=== PATIENT | male | born 1965 | race African-American/Black ===

== ENCOUNTER 2016-05-15 14:44 | Emergency (ER) | payer SELFPAY ==
[2016-05-15] MEDS ORDERED: DIPH/PERTUSS(ACELL)/TETANUS VAC/PF 0.5 ML SYR (>=10YO) IM ONE (15:28)
--- NOTE | 2016-05-15 15:28 | ER Document Report ---
ED Medical Screen (RME) - General Stated Complaint: LEG INJURY Notes: 51 yo male c/o laceration to left lower leg. tree branch fell. unsure of tetnus status. 3 cm laceration, no active bleeding. TRAVEL OUTSIDE OF THE [place] IN LAST 30 DAYS: No - Related Data Allergies/Adverse Reactions: No Known Allergies Allergy (Verified 05/15/16 15:24)
[2016-05-15] MEDS ORDERED: LIDOCAINE 1%/EPINEPHRINE INJ 20 ML VIAL INJ ONE (19:01)
--- NOTE | 2016-05-15 19:28 | ER Document Report ---
ED General - General Chief Complaint: Laceration Stated Complaint: lac Notes: Patient is a 51-year-old male without past medical history, who presents after sustaining a laceration to his distal left lower extremity on a branch just prior to arrival. Denies any additional injury. Does note a constant, mild, aching pain to the area. Nothing improves or worsens the pain. Denies a history of similar injury in the past. He has not seen his primary care physician regarding today's concerns. TRAVEL OUTSIDE OF THE [place] IN LAST 30 DAYS: No - Related Data Allergies/Adverse Reactions: No Known Allergies Allergy (Verified 05/15/16 15:24) Past Medical History - General Information source: Patient - Social History Smoking Status: Current Every Day Smoker Chew tobacco use (# tins/day): No Frequency of alcohol use: None Drug Abuse: None Lives with: Spouse/Significant other Family History: Reviewed & Not Pertinent Patient has suicidal ideation: No Patient has homicidal ideation: No Renal/ Medical History: Denies: Hx Peritoneal Dialysis Surgical Hx: Negative Review of Systems - Review of Systems Notes: Constitutional: Negative for fever. Eyes: Negative for visual changes. ENT: Negative for facial injury Cardiovascular: Negative for chest injury. Respiratory: Negative for shortness of breath. Gastrointestinal: Negative for abdominal injury. Genitourinary: Negative for genital injury Musculoskeletal: Negative for back injury. Skin: Positive for laceration/abrasions. Neurological: Negative for head injury. Physical Exam - Vital signs Vitals: Temp Pulse Resp BP Pulse Ox 98.4 F 83 16 162/88 H 98 05/15/16 15:25 05/15/16 15:25 05/15/16 15:25 05/15/16 15:25 05/15/16 15:25 Interpretation: Hypertensive Notes: PHYSICAL EXAMINATION: GENERAL: Well-appearing, well-nourished and in no acute distress. HEAD: Atraumatic, normocephalic. EYES: sclera anicteric, conjunctiva are normal. ENT: Moist mucous membranes. NECK: Normal range of motion LUNGS: Normal work of breathing HEART: 2+ radial pulses bilaterally EXTREMITIES: no pitting or edema. No cyanosis. NEUROLOGICAL: No focal neurological deficits. Moves all extremities spontaneously and on command. PSYCH: Normal mood, normal affect. SKIN: Warm, Dry, normal turgor, there is a 4 cm laceration over the mid left tibial surface Course - Re-evaluation Re-evalutation: 05/15/16 19:27 Patient presents with a for similar laceration over his mid tibial surface. No additional injuries. His tetanus was updated. Was irrigated and cleaned and wound debridement was performed to remove tissue. Running suture used for closure. At this time will discharge with return precautions and follow-up recommendations. Verbal discharge instructions given a the bedside and opportunity for questions given. Medication warnings reviewed. Patient is in agreement with this plan and has verbalized understanding of return precautions and the need for primary care follow-up in the next 7 days. - Vital Signs Vital signs: Temp Pulse Resp BP Pulse Ox 98.4 F 73 14 163/86 H 100 05/15/16 20:08 05/15/16 20:08 05/15/16 20:08 05/15/16 20:08 05/15/16 20:08 Procedures - Laceration/Wound Repair Left Leg Time completed: 19:25 Wound length (cm): 4 Wound's Depth, Shape: Superficial Laceration pre-procedure: Sterile PPE donned Anesthetic type: 1% Lidocaine w/epi Volume Anesthetic (mLs): 2 Wound explored: Contaminated Irrigated w/ Saline (mLs): 500 Wound Debrided: Moderate Wound Repaired With: Sutures Suture Size/Type: 4:0, Prolene Number of Sutures: 1 - Continuous running suture Layer Closure?: No Post-procedure wound care: Sterile dressing applied Post-procedure NV exam normal: Yes Complications: No Discharge - Discharge Clinical Impression: Laceration of left leg Qualifiers: Encounter type: initial encounter Qualified Code(s): S81.812A - Laceration without foreign body, left lower leg, initial encounter Condition: Good Disposition: HOME, SELF-CARE Additional Instructions: Please return to your primary doctor, the ED, or an urgent care in 7 days for suture removal. Return immediately if you develop spreading redness around the wound, pus from the wound, worsening pain, or a fever of >100.4. Keep the area clean and dry. Wash gently with soap and water twice daily and cover with antibiotic ointment. Forms: Elevated Blood Pressure
[2016-05-15 20:10] VITALS: BP 163/86
== END 2016-05-15 20:10 | disposition home or self-care (01) ==
LOC: ER 14:44
PROC: 0HQLXZZ Repair Left Lower Leg Skin, External Approach (ICD-10-PCS; principal; 2016-05-15)
DX: S81.812A Laceration without foreign body, left lower leg, initial encounter (principal); W20.8XXA Other cause of strike by thrown, projected or falling object, initial encounter; Y93.H2 Activity, gardening and landscaping; F17.200 Nicotine dependence, unspecified, uncomplicated
CPT/HCPCS: 99283; 90471; 90715; 12002; J3490

== ENCOUNTER 2018-02-05 08:29 | Emergency (ER) | payer SELFPAY ==
--- NOTE | 2018-02-05 09:37 | ER Document Report ---
ED Neck/Back Problem - General Chief Complaint: Shoulder Pain Stated Complaint: LEFT SHOULDER PAIN Time Seen by Provider: 02/05/18 08:36 Mode of Arrival: Ambulatory Information source: Patient Notes: Patient is a 52-year-old male who comes to emergency room complaining of left- sided neck pain radiating down to the shoulder. Patient states it started approximately 2 weeks ago. Denies any known injuries. He does work as maintenance and manager mission. Patient states this pain comes mostly when he is resting. When he attempts to sleep at night he has a hard time with finding a position of comfort secondary to the pain in his neck and shoulder area. He states that if he lays on one side it hurts more than the other the left side is the affected side. When he gets up in the morning he he is having difficulty turning his head greater to the right than to the left. He states when he gets to work and gets moving it goes away completely and stays away throughout the day and returns when he comes home to rest. Again he denies any history of trauma. He does state that when he was in the [place] he did have a neck injury sustained but has scheduled membranes of that. He also had a history of lower vertebral fractures again very vague and knowing the positions. TRAVEL OUTSIDE OF THE [place] IN LAST 30 DAYS: No - HPI Patient complains to provider of: Pain, Neck, Upper back Onset: Other - 2 weeks Where: Other - Unknown Onset: Cannot confirm Timing: Constant, Worse Quality of pain: Sharp, Stabbing Severity: Moderate Pain Level: 3 Context: Other - Unknown Recent injury: No Associated symptoms: Upper back pain, Other - Left shoulder Exacerbated by: Movement of neck Relieved by: Other - Activity Similar symptoms previously: No Recently seen / treated by doctor: No - Related Data Allergies/Adverse Reactions: No Known Allergies Allergy (Verified 02/05/18 08:32) Past Medical History - General Information source: Patient - Social History Smoking Status: Current Every Day Smoker Cigarette use (# per day): Yes - Half-pack a day Chew tobacco use (# tins/day): No Smoking Education Provided: Yes Frequency of alcohol use: Occasional Drug Abuse: Marijuana Family History: Reviewed & Not Pertinent Patient has suicidal ideation: No Patient has homicidal ideation: No Renal/ Medical History: Denies: Hx Peritoneal Dialysis Review of Systems - Review of Systems Constitutional: No symptoms reported EENT: No symptoms reported Cardiovascular: No symptoms reported Respiratory: No symptoms reported Gastrointestinal: No symptoms reported Genitourinary: No symptoms reported Male Genitourinary: No symptoms reported Musculoskeletal: Muscle pain, Neck pain Skin: No symptoms reported Hematologic/Lymphatic: No symptoms reported Neurological/Psychological: No symptoms reported -: Yes All other systems reviewed and negative Physical Exam - Vital signs Vitals: Temp Pulse Resp BP Pulse Ox 97.6 F 75 16 163/92 H 99 02/05/18 08:35 02/05/18 08:35 02/05/18 08:35 02/05/18 08:35 02/05/18 08:35 Interpretation: Hypertensive - Notes Notes: PHYSICAL EXAMINATION: GENERAL: Well-appearing, well-nourished and in no acute distress. However does appear somewhat uncomfortable. HEAD: Atraumatic, normocephalic. EYES: Pupils equal round and reactive to light, extraocular movements intact, sclera anicteric, conjunctiva are normal. ENT: Nares patent, oropharynx clear without exudates. Moist mucous membranes. NECK: Termination of the cervical spine shows patient to have decreased range of motion in all planes. He has greater loss of motion with rotation to the right as well as extension. Palpation along the cervical spine shows the spine to feel intact and no tenderness and no spasms. There appears to be spasms along the upper trapezius area and tightness of the trapezius on the left side. Patient has point tenderness and a deep spasm that can be felt in his pinpoint. This is approximately 2 inches away from the base of the left side of the neck. There is no tenderness or spasms felt along the scapular border on the left side. Patient has no loss of strength in the left upper extremity to any range of motion against resistance. She has no discomfort or radiation of pain with cervical compression. LUNGS: Breath sounds clear to auscultation bilaterally and equal. No wheezes rales or rhonchi. HEART: Regular rate and rhythm without murmurs ABDOMEN: Soft, nontender, nondistended abdomen. No guarding, no rebound. No masses appreciated. Musculoskeletal: Normal range of motion, no pitting or edema. No cyanosis. As stated above patient's upper extremities range of motion is not affected by this discomfort in the neck area. The spasms lend themselves to the upper trapezius On the left side. NEUROLOGICAL: Cranial nerves grossly intact. Normal speech, normal gait. Normal sensory, motor exams PSYCH: Normal mood, normal affect. SKIN: Warm, Dry, normal turgor, no rashes or lesions noted. Course - Re-evaluation Re-evalutation: 02/05/18 09:44 Patient's course of stay here was uneventful. I explained to patient that the spasms and usual. His cervical spine x-ray showed there is disc space narrowing and osteophyte formations C5 through 6 and C6 through 7 so technically cervical disc disease which can lend itself to with the osteophytes to having severe spasms in the local area 2. We will treated with 3 different ways we will put him on a little muscle relaxer for nighttime. A steroid taper for inflammation and I will try little gabapentin. This will help with the nerve type radiculopathy. Given the fact that the disc spaces are narrowing can also lend itself to a herniation type of presentation causing this spasm to occur. Patient is acceptable to this plan I have also had a long talk with patient on hypertension. His blood pressure on reporting it was 163/92 he admits to riding his bicycle 2 blocks to get here in and smoking a cigarette outside before coming in and then have his blood pressure taken. He does admit to having a strong family history of hypertension although he does not know his paternal father but his mother does have extensive history of hypertension as do his sisters and brothers. I have also talked him about the cause and effect of smoking and blood pressure of which I have also told him that he needs to follow someone that can follow him and monitor his pressures and treat accordingly. I have explained to him the treating blood pressure at an early stage has proven to help avoid or at least prolonged association with cardiac . - Vital Signs Vital signs: Temp Pulse Resp BP Pulse Ox 97.6 F 75 16 163/92 H 99 02/05/18 08:35 02/05/18 08:35 02/05/18 08:35 02/05/18 08:35 02/05/18 08:35 Discharge - Discharge Clinical Impression: Torticollis, acute Degenerative joint disease of cervical spine Qualifiers: Spinal osteoarthritis complication: with radiculopathy Qualified Code(s): M47.22 - Other spondylosis with radiculopathy, cervical region Condition: Stable Disposition: HOME, SELF-CARE Instructions: Myalagia (Muscle Pain) ([facility]), Muscle Relaxers ([facility]), Muscle Strain ([facility]) Additional Instructions: As we discussed 2 things first I will address blood pressure. Highly recommend that she establish with a physician monitor your blood pressure. You have history of family and you smoke. Smoking also increases the cholesterol levels in your system. So this needs to be checked out. Just because you are a very thin person does not mean you cannot have a heart attack. Monitor your blood pressure decrease her smoking as much as possible. As far the neck this is a process that could be having 2 or more possible causes which we are trying to treat. I am going to try to treat first the disc disease with some steroids to see if it alleviates this problem as well as muscle relaxers at night. During the day you may take Tylenol or ibuprofen however you said that during the day it does not bother you because you loosen it up. So if you deemed out then you do not have to take anything except the steroids for the first 6 days. It is beneficial to ice down that area at night when you get home and/or use moist heat. Moist heat includes applying a washrag as warm as you can stand it from the sink do not put it in the microwave. Or purchasing a heating pad that is designed to have a wet rag inside and placed that on the area. [employer] or any pharmacy carries these for anywhere from $12-$20. He they have timers on them which is ideal if you fall asleep you do not burn yourself. Light stretching as we discussed also point massage like we have discussed with finding that area that hurts applying pressure there with a finger holding for 30-60 seconds in releasing. Again follow-up with your primary care in some physical therapy if this does not solve your problem. You can continue work as normal since it does not bother you there. Prescriptions: Cyclobenzaprine HCl [Flexeril 10 mg Tablet] 10 mg PO TIDP PRN #21 tablet PRN Reason: Gabapentin 400 mg PO ASDIR PRN #20 capsule PRN Reason: Prednisone [Sterapred Ds] 10 mg PO ASDIR PRN 6 Days #1 tab.ds.pk PRN Reason: Forms: Elevated Blood Pressure, Smoking Cessation Education, Return to Work Referrals: [facility] [NO LOCAL MD] - Follow up as needed
--- NOTE | 2018-02-05 09:40 | RADIOLOGY REPORT (SQ) ---
EXAM DESCRIPTION: CERV SP 3 VIEW OR LESS COMPLETED DATE/TIME: 02/05/2018 9:20 am REASON FOR STUDY: neck pain muscle spasms COMPARISON: None. NUMBER OF VIEWS: Three views. TECHNIQUE: AP, lateral and odontoid radiographic images acquired of the cervical spine. LIMITATIONS: None. FINDINGS: Alignment is anatomic. There is disc space narrowing and osteophyte formation C5- 6 and C 6-7. Prevertebral soft tissues are normal. IMPRESSION: Cervical disc disease. TECHNICAL DOCUMENTATION: JOB ID: [id number]- All Rights Reserved Reading location - IP/workstation name: [email or web address]
[2018-02-05 10:30] VITALS: BP 155/90
== END 2018-02-05 10:32 | disposition home or self-care (01) ==
LOC: ER 08:29
DX: M43.6 Torticollis (principal); M47.22 Other spondylosis with radiculopathy, cervical region; M25.512 Pain in left shoulder; F17.210 Nicotine dependence, cigarettes, uncomplicated
CPT/HCPCS: 72040; 99283

== ENCOUNTER 2018-02-18 07:32 | Emergency (ER) | payer SELFPAY ==
[2018-02-18 07:41] VITALS: BP 153/89
[2018-02-18] MEDS ORDERED: KETOROLAC TROMETHAMINE 60 MG/2 ML SDV IM ONE (08:29)
[2018-02-18] MEDS ORDERED: CYCLOBENZAPRINE HCL 10 MG TABLET PO ONE (08:29)
--- NOTE | 2018-02-18 08:34 | ER Document Report ---
HPI - HPI Patient complains to provider of: neck pain Pain Level: 4 Context: Patient is a 52-year-old male presenting to the emergency department complaining of cervical neck pain. Patient states he was to this facility on February 05 for the same complaint. States he was given medications to go home with which have helped but he has since taken all of them. Patient states he has not followed up with [facility] or [facility]. Patient is denying any change in his pain or recent injury since his last visit to the emergency room. States he was told here that he had degenerative disc disease and he needed to follow-up with [facility]. Patient states when he was in the he injured his neck and lower back while playing football, states he has had intermittent pain in both ever since. Past medical history: None Medications: None Allergies: None Patient is a everyday cigarette smoking, denies illicit drug use, denies EtOH use. Past Medical History - General Information source: Patient - Social History Smoking Status: Current Every Day Smoker Lives with: Alone Family History: Reviewed & Not Pertinent Renal/ Medical History: Denies: Hx Peritoneal Dialysis Vertical Provider Document - CONSTITUTIONAL Agree With Documented VS: Yes Notes: GENERAL: Alert, interacts well. No acute distress. HEAD: Normocephalic, atraumatic. EYES: Pupils equal, round, and reactive to light. Extraocular movements intact. ENT: Oral mucosa moist, tongue midline. NECK: Full range of motion. Supple. Trachea midline. LUNGS: Clear to auscultation bilaterally, no wheezes, rales, or rhonchi. No respiratory distress. HEART: Regular rate and rhythm. No murmur ABDOMEN: Soft, non-tender. Non-distended. Bowel sounds present in all 4 quadrants. EXTREMITIES: Moves all 4 extremities spontaneously. No edema, normal radial and dorsalis pedis pulses bilaterally. No cyanosis. 5/5 strength all 4 extremities. BACK: no cervical, thoracic, lumbar midline tenderness. No saddle anesthesia, normal distal neurovascular exam. Minor discomfort upon palpation left trapezius muscle, patient has full range of motion of his neck but does state his left neck and shoulder hurt upon movement. NEUROLOGICAL: Alert and oriented x3. Normal speech. cranial nerves II through XII grossly intact PSYCH: Normal affect, normal mood. SKIN: Warm, dry, normal turgor. No rashes or lesions noted. - INFECTION CONTROL TRAVEL OUTSIDE OF THE [place] IN LAST 30 DAYS: No Course - Re-evaluation Re-evalutation: 02/18/18 08:33 Discussed need to follow-up with [facility] or [facility] for further evaluation. Stated there is no need to repeat x-rays if the patient is not complaining of new injury or different pain. Patient's continues to deny any numbness or tingling in any extremity to include urine retention or loss of bowel or bladder. Discussed treatments in the emergency room and need for outpatient follow-up. Patient agrees with plan. - Vital Signs Vital signs: Temp Pulse Resp BP Pulse Ox 97.5 F 87 16 153/89 H 100 02/18/18 07:39 02/18/18 07:39 02/18/18 07:39 02/18/18 07:39 02/18/18 07:39 Discharge - Discharge Clinical Impression: Neck pain Condition: Stable Disposition: HOME, SELF-CARE Instructions: Warm Packs ([facility]), Pain Medication Injection ([facility]), Muscle Strain ([facility]) Additional Instructions: As we discussed you have been seen and treated in the emergency room for left neck pain. Please take medications as prescribed. Please make sure you follow- up with [facility] or [facility] at your earliest convenience. Please return to the emergency room for any other concerning symptoms. If you can figure out your insurance I have included a phone number for an orthopedic doctor within this packet. Please follow-up with them for further care. Prescriptions: Ketorolac Tromethamine [Toradol 10 mg Tablet] 10 mg PO Q8HP PRN #24 tablet PRN Reason: Cyclobenzaprine HCl [Flexeril 10 mg Tablet] 10 mg PO TIDP PRN #15 tab PRN Reason: Forms: Elevated Blood Pressure
== END 2018-02-18 09:32 | disposition home or self-care (01) ==
LOC: ER 07:32
DX: M54.2 Cervicalgia (principal); F17.210 Nicotine dependence, cigarettes, uncomplicated
CPT/HCPCS: 99283; 96372; J1885

== ENCOUNTER → 2018-03-26 | Outpatient (CLI) | payer OTHER ==
[2018-03-26 09:54] LABS: ABSOLUTE BASOPHILS # (AUTO) 0.1 10^3/uL (0.0-0.2); ABSOLUTE EOSINOPHILS # (AUTO) 0.1 10^3/uL (0.0-0.6); ABSOLUTE LYMPHOCYTES (AUTO) 1.7 10^3/uL (0.5-4.7); ABSOLUTE NEUT (AUTO) 7.2 10^3/uL (1.7-8.2); BASOPHILS % (AUTO) 0.5 % (0-2); EOSINOPHILS % (AUTO) 0.7 % (0-6); HEMATOCRIT 46.7 % (37.9-51.0); HEMOGLOBIN 15.8 g/dL (13.5-17.0); LYMPHOCYTES % (AUTO) 16.7 % (13-45); MEAN CORPUSCULAR HEMOGLOBIN 28.1 pg (27.0-33.4); MEAN CORPUSCULAR HGB CONC 33.8 g/dL (32.0-36.0); MEAN CORPUSCULAR VOLUME 83 fl (80-97); MONOCYTES % (AUTO) 9.7 % (3-13); PLATELET COUNT 304 10^3/uL (150-450); RED BLOOD COUNT 5.61 10^6/uL (4.35-5.55); RED CELL DISTRIBUTION WIDTH 15.5 % (11.5-14.0); SEGMENTED NEUTROPHILS % (AUTO) 72.4 % (42-78); TOTAL CELLS COUNTED % (AUTO) 100 %
[2018-03-26 10:04] LABS: ALANINE AMINOTRANSFERASE 24 U/L (21-72); ALBUMIN 4.7 g/dL (3.5-5.0); ALKALINE PHOSPHATASE 73 U/L (38-126); ANION GAP 10 (5-19); ASPARTATE AMINO TRANSFERASE 43 U/L (17-59); BILIRUBIN,DIRECT 0.3 mg/dL (0.0-0.4); BILIRUBIN,TOTAL 0.9 mg/dL (0.2-1.3); BLOOD UREA NITROGEN 12 mg/dL (7-20); CALCIUM 10.1 mg/dL (8.4-10.2); CARBON DIOXIDE 28 mmol/L (22-30); CHLORIDE 101 mmol/L (98-107); GLUCOSE 93 mg/dL (75-110); POTASSIUM 4.9 mmol/L (3.6-5.0); TOTAL PROTEIN 7.8 g/dL (6.3-8.2); TRIGLYCERIDES 85 mg/dL (<150)
[2018-03-26 10:05] LABS: URIC ACID 4.6 mg/dL (3.5-8.5)
[2018-03-26 10:14] LABS: DIRECT LDL 127 mg/dL (<100)
--- NOTE | 2018-03-26 10:14 | RADIOLOGY REPORT (SQ) ---
EXAM DESCRIPTION: C SP 6 OR MORE VIEWS COMPLETED DATE/TIME: 03/26/2018 9:24 am REASON FOR STUDY: CERVICAL DISC DISORDER, UNSP, UNSPECIFIED CERVICAL REGION I10 ESSENTIAL (PRIMARY) HYPERTENSION M50.90 CERVICAL DISC DISORDER, UNSP, UNSPECIFIED CERVICAL RE COMPARISON: 02/05/2018. NUMBER OF VIEWS: Seven views. TECHNIQUE: AP, lateral, obliques, flexion, extension, and odontoid radiographic images acquired of t he cervical spine. LIMITATIONS: None. FINDINGS: MINERALIZATION: Normal. ALIGNMENT: Anatomic. FLEXION/EXTENSION: No instability. VERTEBRAE: Vertebral bodies of normal height. DISCS: Multilevel disc space narrowing with osteophytes, more prominent in the lower cervical spine. FORAMINA: Bilateral foraminal narrowing due to osteophytes. LATERAL AND POSTERIOR ELEMENTS: Facets, lateral masses, and spinous processes without significant fin dings. HARDWARE: None in the spine. SOFT TISSUES: No masses or calcifications. Lung apices clear. OTHER: No other significant finding. IMPRESSION: DEGENERATIVE DISC DISEASE PRIMARILY IN THE LOWER CERVICAL SPINE. NO INSTABILITY ON FLEXION/EXTENSION. TECHNICAL DOCUMENTATION: JOB ID: [id number]- All Rights Reserved Reading location - IP/workstation name: [email or web address]
== END ==
LOC: CCC 08:47
DX: M50.30 Other cervical disc degeneration, unspecified cervical region (principal); I10 Essential (primary) hypertension; M50.90 Cervical disc disorder, unspecified, unspecified cervical region; M54.2 Cervicalgia; M54.12 Radiculopathy, cervical region
CPT/HCPCS: 36415; 72052; 80053; 80061; 83036; 84550; 85025

== ENCOUNTER 2019-05-06 14:49 | Emergency (ER) | payer SELFPAY ==
--- NOTE | 2019-05-06 16:28 | ER Document Report ---
ED Medical Screen (RME) - General Chief Complaint: Blood Pressure Problem Stated Complaint: BLOOD PRESSURE CHECK Time Seen by Provider: 05/06/19 16:23 Primary Care Provider: SVETA BARRAZA [Primary Care Provider] - Follow up as needed TRAVEL OUTSIDE OF THE [place] IN LAST 30 DAYS: No - HPI Notes: 05/06/19 16:27 54-year-old male to the emergency department with complaints of an episode of dizziness that occurred just prior to arrival. He states he was in [facility] when he began to feel acutely dizzy like he was spinning. He states he was thinking about crossing the street and when this fell kind of ended he was on the other side. He states he does not remember actually crossing the street. He feeling like he may pass out. He does have a history of hypertension and he was concerned that maybe his blood pressure was elevated. He states at the time of the episode he had some left-sided neck pain as well. He denies any chest pain or shortness of breath. He states that his symptoms have gotten better. He is a smoker. I performed a brief medical screening exam on the patient determined that he will need further evaluation and management by main side provider. I placed initial orders to help expedite his care. - Related Data Allergies/Adverse Reactions: No Known Allergies Allergy (Verified 05/06/19 16:22) Past Medical History Renal/ Medical History: Denies: Hx Peritoneal Dialysis Physical Exam - Vital signs Vitals: Temp Pulse Resp BP Pulse Ox 98.2 F 87 16 145/84 H 100 05/06/19 14:57 05/06/19 14:57 05/06/19 14:57 05/06/19 14:57 05/06/19 14:57 Course - Vital Signs Vital signs: Temp Pulse Resp BP Pulse Ox 98.2 F 87 16 145/84 H 100 05/06/19 14:57 05/06/19 14:57 05/06/19 14:57 05/06/19 14:57 05/06/19 14:57 Doctor's Discharge - Discharge Referrals: SVETA BARRAZA [Primary Care Provider] - Follow up as needed
[2019-05-06 17:25] LABS: ABSOLUTE BASOPHILS # (AUTO) 0.1 10^3/uL (0.0-0.2); ABSOLUTE LYMPHOCYTES (AUTO) 2.4 10^3/uL (0.5-4.7); ABSOLUTE MONOCYTES (AUTO) 0.8 10^3/uL (0.1-1.4); ABSOLUTE NEUT (AUTO) 5.3 10^3/uL (1.7-8.2); EOSINOPHILS % (AUTO) 0.5 % (0-6); HEMATOCRIT 47.6 % (37.9-51.0); MEAN CORPUSCULAR HEMOGLOBIN 27.5 pg (27.0-33.4); MEAN CORPUSCULAR HGB CONC 33.6 g/dL (32.0-36.0); MEAN CORPUSCULAR VOLUME 82 fl (80-97); MONOCYTES % (AUTO) 8.8 % (3-13); PLATELET COUNT 251 10^3/uL (150-450); RED BLOOD COUNT 5.81 10^6/uL (4.35-5.55); RED CELL DISTRIBUTION WIDTH 15.4 % (11.5-14.0); SEGMENTED NEUTROPHILS % (AUTO) 61.7 % (42-78); TOTAL CELLS COUNTED % (AUTO) 100 %; WHITE BLOOD COUNT 8.6 10^3/uL (4.0-10.5)
[2019-05-06 17:43] LABS: ALBUMIN 4.7 g/dL (3.5-5.0); ALKALINE PHOSPHATASE 74 U/L (38-126); ANION GAP 10 (5-19); ASPARTATE AMINO TRANSFERASE 28 U/L (17-59); BILIRUBIN,DIRECT 0.2 mg/dL (0.0-0.4); BILIRUBIN,TOTAL 0.4 mg/dL (0.2-1.3); BLOOD UREA NITROGEN 8 mg/dL (7-20); CARBON DIOXIDE 30 mmol/L (22-30); CHLORIDE 101 mmol/L (98-107); GLUCOSE 80 mg/dL (75-110); POTASSIUM 4.7 mmol/L (3.6-5.0); TOTAL PROTEIN 8.3 g/dL (6.3-8.2)
[2019-05-06] MEDS ORDERED: NORMAL SALINE 1000 ML 1,000 ML IV ONE (20:21)
--- NOTE | 2019-05-06 20:48 | ER Document Report ---
ED General - General Chief Complaint: Dizziness Stated Complaint: BLOOD PRESSURE CHECK Time Seen by Provider: 05/06/19 16:23 Primary Care Provider: [facility] [Primary Care Provider] - Follow up as needed Notes: 54-year-old male with history of hypertension presents with lightheaded/dizziness that occurred around noon/1 PM. Patient states he was across the street and felt dizzy and thought about walking across the street and then found himself having crossed the street without realizing that he had. Patient states he has not eaten anything since yesterday. Patient states he has been stressed out and when he is stressed out he does not eat. Patient denies nausea/vomiting, chest pain, shortness of breath, fever, chills, passing out. Patient states that his dizziness has resolved and he feels "great." TRAVEL OUTSIDE OF THE [place] IN LAST 30 DAYS: No - Related Data Allergies/Adverse Reactions: No Known Allergies Allergy (Verified 05/06/19 16:22) Home Medications: htn Past Medical History - Social History Smoking Status: Current Every Day Smoker Chew tobacco use (# tins/day): No Frequency of alcohol use: None Drug Abuse: None Family History: Reviewed & Not Pertinent Patient has suicidal ideation: No Patient has homicidal ideation: No - Past Medical History Cardiac Medical History: Reports: Hx Hypertension Renal/ Medical History: Denies: Hx Peritoneal Dialysis Review of Systems - Review of Systems Notes: Constitutional: Negative for fever. HENT: Negative for sore throat. Eyes: Negative for visual changes. Cardiovascular: Negative for chest pain. Respiratory: Negative for shortness of breath. Gastrointestinal: Negative for abdominal pain, vomiting or diarrhea. Genitourinary: Negative for dysuria. Musculoskeletal: Negative for back pain. Skin: Negative for rash. Neurological: Positive for dizziness. Negative for headaches, weakness or numbness. 10 point ROS negative except as marked above and in HPI. Physical Exam - Vital signs Vitals: Temp Pulse Resp BP Pulse Ox 98.2 F 87 16 145/84 H 100 05/06/19 14:57 05/06/19 14:57 05/06/19 14:57 05/06/19 14:57 05/06/19 14:57 - Notes Notes: GENERAL: Well-appearing, well-nourished and in no acute distress. HEAD: Atraumatic, normocephalic. EYES: Pupils equal round and reactive to light, extraocular movements intact, sclera anicteric, conjunctiva are normal. NECK: Normal range of motion, supple without lymphadenopathy or JVD. LUNGS: Breath sounds clear to auscultation bilaterally and equal. No wheezes rales or rhonchi. HEART: Regular rate and rhythm without murmurs, rubs or gallops. ABDOMEN: Soft, nontender. No guarding, no rebound. No masses appreciated. EXTREMITIES: Normal range of motion, no pitting or edema. No clubbing or cyanosis. NEUROLOGICAL: Cranial nerves II through XII grossly intact. Normal speech, normal gait. No facial droop. No tongue deviation. Grain Farmer strength equal bilaterally. Upper extremity strength equal bilaterally. Lower extremity strength equal bilaterally. PERRLA. EOM intact. PSYCH: Normal mood, normal affect. SKIN: Warm, Dry, normal turgor, no rashes or lesions noted. Course - Re-evaluation Re-evalutation: 05/06/19 54-year-old male presents with dizziness that occurred around noon/1 p.m. patient states he has not eaten anything since yesterday. Patient dizziness has since resolved. Patient denies any associated chest pain, shor tness of breath, nausea/vomiting, syncope. Regular rate and rhythm. Lungs clear to auscultation bilaterally. Patient is grossly neuro intact. PE is otherwise unremarkable. Patient's EKG shows normal sinus rhythm no ST elevation. Patient's initial work-up is reassuring. Dizziness is most likely secondary to not having eaten. Patient to be given some food in ER and reassess. 05/06/19 23:01 Pt UA shows trace ketones. Discussed all results with pt. Pt given strict return precautions and encouraged to eat food. Pt voices understanding and agrees with plan of care. - Vital Signs Vital signs: Temp Pulse Resp BP Pulse Ox 98.7 F 66 16 141/83 H 99 05/06/19 19:59 05/06/19 19:59 05/06/19 19:59 05/06/19 19:59 05/06/19 19:59 - Laboratory Result Diagrams: 05/06/19 17:05 05/06/19 17:05 Laboratory results interpreted by me: 05/06/19 05/06/19 05/06/19 17:05 17:05 22:00 RBC 5.81 H RDW 15.4 H Total Protein 8.3 H Urine Ketones TRACE H Urine Urobilinogen 2.0 H Discharge - Discharge Clinical Impression: Dizziness Condition: Stable Disposition: HOME, SELF-CARE Instructions: Dizziness ([facility]) Additional Instructions: Please make sure you eat. Please follow-up with your primary care doctor in 3 to 5 days if you do not have 1 1 of the clinics listed. Return immediately to ER if you start having any worsening symptoms, including worsening dizziness, f eeling like you are in a pass out, passing out, fever, nausea/vomiting, abdominal pain, chest pain, shortness of breath, or any other symptoms that are concerning to you. Referrals: [facility] [Primary Care Provider] - Follow up in 3-5 days
[2019-05-06 22:24] LABS: APPEARANCE,URINE CLEAR; BILIRUBIN,URINE NEGATIVE (NEGATIVE); COLOR,URINE YELLOW; GLUCOSE, URINE NEGATIVE (NEGATIVE); KETONES,URINE TRACE mg/dL (NEGATIVE); LEUKOCYTE ESTERASE,URINE NEGATIVE (NEGATIVE); NITRITE,URINE NEGATIVE (NEGATIVE); PROTEIN,URINE NEGATIVE (NEGATIVE); URINE SPECIFIC GRAVITY 1.016
[2019-05-06 23:29] VITALS: BP 124/72
--- NOTE | 2019-05-07 12:55 | EKG REPORT ---
SEVERITY:- ABNORMAL ECG - SINUS RHYTHM FIRST DEGREE AV BLOCK ST ELEV, PROBABLE NORMAL EARLY REPOL PATTERN : Confirmed by: Karena Pate 07-May-2019 12:54:15
== END 2019-05-06 23:29 | disposition home or self-care (01) ==
LOC: ER 14:49
DX: R42 Dizziness and giddiness (principal); F17.200 Nicotine dependence, unspecified, uncomplicated; I10 Essential (primary) hypertension
CPT/HCPCS: 93005; 99284; 96360; 36415; 83735; 85025; 80053; 81001; 93010; J7030

== ENCOUNTER 2019-05-29 18:16 | Emergency (ER) | payer SELFPAY ==
[2019-05-29] MEDS ORDERED: OXYCODONE-ACETAMINOPHEN 5-325 MG TABLET PO ONE (18:43)
--- NOTE | 2019-05-29 19:42 | RADIOLOGY REPORT (SQ) ---
EXAM DESCRIPTION: KNEE LEFT 4 VIEW COMPLETED DATE/TIME: 05/29/2019 7:17 pm REASON FOR STUDY: knee pain s/p fall COMPARISON: None. NUMBER OF VIEWS: Four views. TECHNIQUE: AP, lateral, and both oblique radiographic images acquired of the left knee. LIMITATIONS: None. FINDINGS: MINERALIZATION: Normal. BONES: No acute fracture or dislocation. No worrisome bone lesions. JOINT: No effusion. SOFT TISSUES: No soft tissue swelling. No radio-opaque foreign body. OTHER: No other significant finding. IMPRESSION: No obvious acute osseous abnormality of the left knee. TECHNICAL DOCUMENTATION: JOB ID: [id number] 2010 [employer]- All Rights Reserved Reading location - IP/workstation name: [email or web address]
--- NOTE | 2019-05-29 20:17 | ER Document Report ---
HPI - HPI Time Seen by Provider: 05/29/19 18:32 Pain Level: 5 Notes: 54-year-old male patient with history of hypertension presenting to the emergency department complaints of left knee pain. He states he fell yesterday at home when he was carrying something and fell twisting his knee. He also states that his knee struck against a solid object on the ground. He states swelling and pain has increased since then. He reports severe pain with ambulation. He did not take his high blood pressure medication today which is why he is hypertensive in the emergency department. - CONSTITUTIONAL Constitutional: DENIES: Fever, Chills - REPRODUCTIVE Reproductive: DENIES: : - MUSCULOSKELETAL Musculoskeletal: REPORTS: Extremity pain Past Medical History - General Information source: Patient - Social History Smoking Status: Never Smoker Frequency of alcohol use: None Drug Abuse: None Family History: Reviewed & Not Pertinent Patient has suicidal ideation: No Patient has homicidal ideation: No - Past Medical History Cardiac Medical History: Reports: Hx Hypertension Renal/ Medical History: Denies: Hx Peritoneal Dialysis Vertical Provider Document - CONSTITUTIONAL Notes: PHYSICAL EXAMINATION: GENERAL: Well-appearing, well-nourished and in no acute distress. LUNGS: Breath sounds clear to auscultation bilaterally and equal. No wheezes rales or rhonchi. HEART: Regular rate and rhythm without murmurs, rubs, gallops. Musculoskeletal: Lt knee: Mild swelling, no ecchymosis, effusion, or deformity. FROM to passive/active and flexion >90 w/o difficulty or tenderness. Strength 5+/5. N/V intact distal. No bony tenderness. Ligamentous grossly stable. Chepe grossly negative. Patellar grind negative. No calf tenderness. Extremities: No cyanosis, clubbing, or edema b/l. Peripheral pulses 2+. Capillary refill less than 3 seconds. Seng neg b/l. NEUROLOGICAL: Normal speech. Normal sensory, motor exams PSYCH: Normal mood, normal affect. SKIN: Warm, Dry, normal turgor, no rashes or lesions noted. - INFECTION CONTROL TRAVEL OUTSIDE OF THE [place] IN LAST 30 DAYS: No Course - Re-evaluation Re-evalutation: Knee X-Ray 05/29/19 18:40 IMPRESSION: No obvious acute osseous abnormality of the left knee. - Vital Signs Vital signs: Temp Pulse Resp BP Pulse Ox 100.8 F H 98 16 168/105 H 100 05/29/19 18:32 05/29/19 18:32 05/29/19 18:32 05/29/19 18:32 05/29/19 18:32 Procedures - Immobilization Left knee Pre-Proc Neuro Vasc Exam: Normal Immobilizer type: Jose G wrap, Crutches Performed by: PCT Post-Proc Neuro Vasc Exam: Normal Discharge - Discharge Clinical Impression: Knee sprain Qualifiers: Encounter type: initial encounter Involved ligament of knee: unspecified ligament Laterality: left Qualified Code(s): S83.92XA - Sprain of unspecified site of left knee, initial encounter Condition: Stable Disposition: HOME, SELF-CARE Instructions: Ice & Elevation ([facility]), Oral Narcotic Medication ([facility]), Sprained Knee ([facility]) Additional Instructions: Please take 600 mg of ibuprofen every 6 hours. Please also use the narcotic pain medication for severe pain only. Ice and elevate the knee as outlined in the discharge instructions. Keep the Jose G wrap in place. Use the crutches. Follow-up with your primary care provider or orthopedics if not improving over the next 1 to 2 weeks. Referrals: [facility] [Primary Care Provider] - Follow up as needed ZACK MCKEON JR, DO [ACTIVE PROVISIONAL STAFF] - Follow up as needed
[2019-05-29] MEDS ORDERED: HYDROCODONE/ACETAMINOPHEN 5-325 MG (6 TAB/ER DISP) PO PRN (20:34)
[2019-05-29 20:40] VITALS: BP 149/91
== END 2019-05-29 20:59 | disposition home or self-care (01) ==
LOC: ER 18:16
DX: S83.92XA Sprain of unspecified site of left knee, initial encounter (principal); M25.562 Pain in left knee; M79.89 Other specified soft tissue disorders; W19.XXXA Unspecified fall, initial encounter; Y92.009 Unspecified place in unspecified non-institutional (private) residence as the place of occurrence of the external cause; I10 Essential (primary) hypertension; Z79.899 Other long term (current) drug therapy
CPT/HCPCS: 99283